=== PATIENT | female | born 1980 | race African-American/Black ===

== ENCOUNTER 2016-05-29 07:56 | Inpatient (IN) | payer MEDICAID, OTHER ==
[~2016-05-29] VITALS: Ht 162.6 cm; Wt 72.0 kg
[~2016-05-29 07:56] MED LIST: PENI500T PO; Z.0.NO CURRENT MEDS
[2016-05-29 07:58] VITALS: BP 117/72; PULSE 84; RESP 15; TEMP 98; O2SAT 99
--- NOTE | 2016-05-29 09:09 | PD ---
HPI Chief Complaint: Injury Time Seen by Provider: 09:09 Travel History International Travel<30 days: No Contact w/Intl Traveler<30days: No Traveled to known affect area: No History of Present Illness HPI 35-year-old female presents to the emergency department for evaluation of right- sided right calf pain. Patient states on Sunday, she was at the [facility] with her daughter. She states that she thought she could not as well. She started with right thigh pain soon after. However, she now also has right calf pain. The patient is concerned because she had a DVT when she was 16 years old. She does have an IVC filter. She states the DVT was in the left leg. She states that her left leg is chronically more swollen than her right, but her right leg equal to left leg now. Patient has been ambulatory. No fevers or chills. She has no other medical problems and takes no prescribed medications. She denies any chance of . Patient states that she took ibuprofen once for the pain. She denies any other complaints at this time. [facility] Past Medical History Asthma: Yes Diminished Hearing: No Deep Vein Thrombosis: Yes (LEFT LEG) Tetanus Vaccination: < 5 Years Influenza Vaccination: Yes ?: Not Past Surgical History Section: Yes Other Surgery: Yes (DEYVI FILTER IN 1997, BILAT BREAST AUGMENTATION) Social History Alcohol Use: Yes ([facility]) Tobacco Use: No Substance Use: No Allergies-Medications (Allergen,Severity, Reaction): Coded Allergies: No Known Allergies (Verified , 05/29/16) Reported Meds & Prescriptions Reported Meds & Active Scripts Active Review of Systems Except as stated in HPI: all other systems reviewed are Neg Physical Exam Narrative GENERAL: Well-nourished, well-developed female patient ambulatory. Afebrile., SKIN: Focused skin assessment warm/dry. No erythema or warmth noted over right lower extremity. HEAD: Normocephalic. Atraumatic. EYES: No scleral icterus. No injection or drainage. NECK: Supple, trachea midline. No JVD or lymphadenopathy. CARDIOVASCULAR: Regular rate and rhythm without murmurs, gallops, or rubs. Right pedal pulse 2+. RESPIRATORY: Breath sounds equal bilaterally. No accessory muscle use. Lungs sounds are clear to auscultation. GASTROINTESTINAL: Abdomen soft, non-tender, nondistended. MUSCULOSKELETAL: No cyanosis, or edema. Patient has tenderness over specific area on the right medial thigh. She also tenderness diffusely over the right calf. Positive Homans sign. BACK: Nontender without obvious deformity. No CVA tenderness. Data Data Last Documented VS Vital Signs Date Time Temp Pulse Resp B/P Pulse Ox O2 Delivery O2 Flow Rate FiO2 05/29/16 08:22 Room Air 05/29/16 07:58 98.0 84 15 117/72 99 Orders Us Leg Venous Doppler (05/29/16 ) Ibuprofen (Motrin) (05/29/16 09:15) Methocarbamol (Robaxin) (05/29/16 09:15) Iv Access Insert/Monitor (05/29/16 11:40) Complete Blood Count With Diff (05/29/16 11:40) Comprehensive Metabolic Panel (05/29/16 11:40) Prothrombin Time / Inr (Pt) (05/29/16 11:40) Act Partial Throm Time (Ptt) (05/29/16 11:40) Venogram, Leg (05/29/16 ) Ed Urine Pregnancytest Poc (05/29/16 11:40) Admit To Inpatient (05/29/16 ) Vital Signs (Adult) Q4H (05/29/16 12:00) Activity Oob With Assistance (05/29/16 12:00) Diet Npo (05/29/16 Lunch) Sodium Chloride 0.9% Flush (Ns Flush) (05/29/16 12:00) Sodium Chloride 0.9% Flush (Ns Flush) (05/29/16 21:00) Acetaminophen (Tylenol) (05/29/16 12:00) Ondansetron Inj (Zofran Inj) (05/29/16 12:00) Bisacodyl Supp (Dulcolax Supp) (05/29/16 12:00) Magnesium Hydroxide Liq (Milk Of Magnesi (05/29/16 12:00) Basic Metabolic Panel (Bmp) (05/30/16 06:00) Chest, Single Ap (05/29/16 12:00) Electrocardiogram (05/29/16 12:00) Pt Request For Service (05/29/16 12:00) Naloxone Inj (Narcan Inj) (05/29/16 12:00) Inpatient Certification (05/29/16 ) Beta Hcg (Quant/Titer) (05/29/16 12:00) Acetamin-Hydrocod 325-5 Mg (Bauxite 5-325 (05/29/16 12:15) Admit Order (Ed Use Only) (05/29/16 12:09) Us Guided Vascular Access (05/29/16 ) Labs Laboratory Tests Test 05/29/16 11:55 White Blood Count 5.7 TH/MM3 Red Blood Count 3.74 MIL/MM3 Hemoglobin 11.3 GM/DL Hematocrit 34.4 % Mean Corpuscular Volume 92.2 FL Mean Corpuscular Hemoglobin 30.2 PG Mean Corpuscular Hemoglobin 32.8 % Concent Red Cell Distribution Width 13.0 % Platelet Count 184 TH/MM3 Mean Platelet Volume 8.5 FL Neutrophils (%) (Auto) 55.7 % Lymphocytes (%) (Auto) 30.9 % Monocytes (%) (Auto) 11.0 % Eosinophils (%) (Auto) 1.7 % Basophils (%) (Auto) 0.7 % Neutrophils # (Auto) 3.2 TH/MM3 Lymphocytes # (Auto) 1.8 TH/MM3 Monocytes # (Auto) 0.6 TH/MM3 Eosinophils # (Auto) 0.1 TH/MM3 Basophils # (Auto) 0.0 TH/MM3 CBC Comment DIFF FINAL Differential Comment Prothrombin Time 11.2 SEC Prothromb Time International 1.0 RATIO Ratio Activated Partial 25.0 SEC Thromboplast Time Sodium Level 140 MEQ/L Potassium Level 4.2 MEQ/L Chloride Level 104 MEQ/L Carbon Dioxide Level 27.4 MEQ/L Anion Gap 9 MEQ/L Blood Urea Nitrogen 12 MG/DL Creatinine 0.76 MG/DL Estimat Glomerular Filtration 104 ML/MIN Rate Random Glucose 86 MG/DL Calcium Level 8.3 MG/DL Total Bilirubin 1.0 MG/DL Aspartate Amino Transf 16 U/L (AST/SGOT) Alanine Aminotransferase 17 U/L (ALT/SGPT) Alkaline Phosphatase 51 U/L Total Protein 6.8 GM/DL Albumin 3.6 GM/DL Human Chorionic Gonadotropin, LESS THAN 1 Quant MIU/ML MDM Medical Decision Making Medical Screen Exam Complete: Yes Emergency Medical Condition: Yes Medical Record Reviewed: Yes Interpretation(s) Last Impressions Lower Extremity Ultrasound 05/29/16 0000 Signed Impressions: Service Date/Time: Marlo, May 29, 2016 09:20 - CONCLUSION: Extensive edema thrombosis on the right as described above. Venous outflow was compromised through the external iliac vein. Kyree Stout MD FACR Differential Diagnosis Muscle strain versus muscle spasm versus DVT Narrative Course 35-year-old female presents to the emergency department for evaluation of right leg pain after practicing at the [employer] on Sunday. She reports a specific area on the right side that hurts, also states that her right calf is painful and more swollen than normal. She does have history of DVT when she was 16 years old and has an IVC filter. Venous Doppler ultrasound of the right lower extremity is ordered and pending. Patient is given ibuprofen and Robaxin the emergency department. Venous Doppler ultrasound of the right lower extremity shows Extensive edema thrombosis on the right as described above. Venous outflow was compromised through the external iliac vein. I discussed the exam and imaging findings with my attending physician, Dr. Talbot. She recommends I contact the patient's primary care physician. [phone] - Adriana Garcia, patient's primary care physician is paged. I was unable to contact Dr. Schmitt by phone. However, apparently she called back the emergency department and was placed on hold for a long period of time. I was unaware that she was on hold. She did write a note in the chart suggesting either consulting interventional radiology or Dr. Faustin to see if they clock and be open since this is of recent onset. I consult at Dr. Darden, interventional radiologist at [phone], and spoke to him about the patient's case. He does believe the patient is a candidate for lysis of the clot. He like a ordered for venogram, labs to be placed as a consult interventional radiology. I discussed this with the patient she would like to go ahead as of this point. CBC, CMP, PTT, PTT/INR, urine test are ordered and pending. Order for venogram and consulting interventional radiology were ordered and pending. Dr. Yanez accepted admission. Diagnosis Primary Impression: DVT (deep venous thrombosis) Qualified Code: I82.401 - Acute deep vein thrombosis (DVT) of right lower extremity, unspecified vein Admitting Information Admitting Physician Requests: Admit Scripts Hydrocodone-Acetaminophen 5-325 mg Tab1 Tab PO Q6H PRN (pain) #7 TAB Ref 0 Prov:Jonathan Yanez DO 05/31/16 Rivaroxaban (Xarelto)15 Mg Tab15 Mg PO BID #60 TAB Ref 0 Prov:Jonathan Yanez DO 05/31/16 Claudia Dockery May 29, 2016 09:09
[2016-05-29] MEDS ORDERED: METHOCARBAMOL 500 MG TAB PO ONE (09:15)
[2016-05-29] MEDS ORDERED: IBUPROFEN 600 MG TAB PO ONE (09:15)
--- NOTE | 2016-05-29 10:08 | RADRPT ---
EXAM DATE/TIME: 05/29/2016 09:20 [facility] COMPARISON: No previous studies available for comparison. INDICATIONS : Pain in right lower extremity. MEDICAL HISTORY : Deep venous thrombosis. Asthma. SURGICAL HISTORY : section. Gamerco filter. Bilateral breast augmentation. ENCOUNTER: Initial ACUITY: 4 - 6 days PAIN SCORE: 5/10 LOCATION: Right leg. TECHNIQUE: Venous ultrasound of the leg was performed from the inguinal ligament to the proximal calf. Real-anisha e, color Doppler and spectral tracing, compression and augmentation techniques were used. FINDINGS: There is extensive edema thrombosis right lower extremity from posterior tibial vein to the iliac vei n. Minimal venous collaterals are noted. CONCLUSION: Extensive edema thrombosis on the right as described above. Venous outflow was compromised through t he external iliac vein. Kyree Stout MD FACR on May 29, 2016 at 10:05 Board Certified Radiologist. This report was verified electronically.
--- NOTE | 2016-05-29 10:56 | HHI.PR ---
Addendum to Inpatient Note Addendum Reason: Additional Documentation Additional Information ED hung up before I could get out of a patient room. I have spent 10 minutes on hold and cannot get connected back to anyone in the ED. I see that she has a DVT. I would suggest either consulting interventional radiology or Dr. Faustin to see if we can open the clot since it is of recent onset. Please call if further info is needed. Adriana Griffin MD May 29, 2016 10:56
[2016-05-29] MEDS ORDERED: BISACODYL 10 MG SUPP PR PRN (12:00)
[2016-05-29] MEDS ORDERED: NALOXONE HCL 0.4 MG/ML AMP IV PRN (12:00)
[2016-05-29] MEDS ORDERED: MAGNESIUM HYDROXIDE SUSP 30 ML CUP PO PRN (12:00)
[2016-05-29] MEDS ORDERED: ONDANSETRON HCL 4 MG/2 ML VIAL IVP PRN (12:00)
[2016-05-29] MEDS ORDERED: SODIUM CHLORIDE 0.9% FLUSH 10 ML FLUSH IV FLUSH PRN (12:00)
[2016-05-29] MEDS ORDERED: ACETAMINOPHEN 325 MG TAB PO PRN (12:00)
[2016-05-29 12:13] LABS: AUTOMATED NEUTROPHIL # 3.2 TH/MM3 (1.8-7.7); BASOPHIL % 0.7 % (0.0-2.0); EOSINOPHIL # 0.1 TH/MM3 (0-0.4); EOSINOPHIL % 1.7 % (0.0-4.0); HEMATOCRIT 34.4 % (35.0-46.0); HEMO FLAGS DIFF FINAL; LYMPH % 30.9 % (9.0-44.0); LYMPHOCYTE # 1.8 TH/MM3 (1.0-4.8); MEAN CELL VOLUME 92.2 FL (80.0-100.0); MEAN CORPUSCULAR HEMOGLOBIN 30.2 PG (27.0-34.0); MEAN CORPUSCULAR HGB CONC 32.8 % (32.0-36.0); NEUT % 55.7 % (16.0-70.0); PLATELET COUNT 184 TH/MM3 (150-450); RED BLOOD COUNT 3.74 MIL/MM3 (4.00-5.30); WHITE BLOOD COUNT 5.7 TH/MM3 (4.0-11.0)
[2016-05-29 12:19] VITALS: BP 114/68; PULSE 70; RESP 16; O2SAT 100
[2016-05-29 12:20] LABS: PROTHROMBIN TIME - PATIENT 11.2 SEC (9.8-11.6)
[2016-05-29 12:26] LABS: ANION GAP 9 MEQ/L (5-15); AST (GOT) 16 U/L (15-37); BICARBONATE 27.4 MEQ/L (21.0-32.0); BLOOD UREA NITROGEN 12 MG/DL (7-18); CHLORIDE 104 MEQ/L (98-107); GLOMERULAR FILTRATION RATE 104 ML/MIN (>89); POTASSIUM 4.2 MEQ/L (3.5-5.1); SODIUM (NA) 140 MEQ/L (136-145)
[2016-05-29 12:29] LABS: ALKALINE PHOSPHATASE 51 U/L (45-117); ALT (GPT) 17 U/L (10-53)
[2016-05-29 12:34] LABS: BETA HCG QUANT LESS THAN 1 MIU/ML (0-5)
--- NOTE | 2016-05-29 12:44 | HHI.HP ---
HPI Service [facility] Hospitalists Primary Care Physician Adriana Garcia MD Admission Diagnosis right leg DVT Chief Complaint: RLE pain and swelling. Travel History International Travel<30 Days: No Contact w/Intl Traveler <30 Da: No Traveled to Known Affected Are: No History of Present Illness Mrs. Goodwin is a pleasant 35 y/o AAF with previous history of LLE DVT in 1997 and had an IVC filter placed at that time. She reports that she had a hematology workup at that time which she states was negative in [place] when the previous DVT occurred. She states that otherwise she is a healthy active female. Pt flew in [place] 2 weeks ago. She presented to the ED at [facility] on 05/29 with complaints of right-sided right calf pain and swelling in the RLE. Patient reports that last week, on Sunday, she was at the [employer] with her daughter and she initially noted pain in the right thigh after she had been hitting balls there but thought that she had pulled a muscle. However, she now also has right calf pain. She states that her left leg is chronically more swollen than her right, but her when her right leg became equal to left leg she became concerned because of her history of a DVT when she was 16 years old. No fevers or chills. She has no other medical problems and takes no prescribed medications. She denies any chance of . She is not on any OCP. Patient states that she took ibuprofen once for the pain. She denies any other complaints at this time. Review of Systems Constitutional: DENIES: Fever, Chills Ears, nose, mouth, throat: DENIES: Vertigo Respiratory: DENIES: Cough, Shortness of breath Cardiovascular: COMPLAINS OF: Lower Extremity Edema, DENIES: Chest pain, Palpitations, Dyspnea on Exertion Gastrointestinal: DENIES: Abdominal pain, Constipation, Diarrhea, Nausea, Vomiting Integumentary: DENIES: Rash Neurologic: DENIES: Headache, Seizures, Poor Balance Past Family Social History Past Medical History Hx of DVT in LLE Asthma Past Surgical History IVC filter placement in 1997 Breast Augmentation in 2010 Cesarian section Tubal ligation Reported Medications No Current Meds Allergies: Coded Allergies: No Known Allergies (Verified , 05/29/16) Family History Mother with hx of HTN Social History Denies any tobacco or illicit drug use Rare alcohol use Pt works as a registered nurse Physical Exam Vital Signs Vital Signs Date Time Temp Pulse Resp B/P Pulse Ox O2 Delivery O2 Flow Rate FiO2 05/29/16 12:19 70 16 114/68 100 Room Air 05/29/16 08:22 Room Air 05/29/16 07:58 98.0 84 15 117/72 99 Physical Exam GENERAL: This is a well-nourished, well-developed patient, in no apparent distress. HEENT: Atraumatic. Normocephalic. No temporal or scalp tenderness. No scleral icterus. Airway patent. NECK: Trachea midline, supple, nontender. CARDIO: Regular. RESP: CTA bilaterally. No wheezes, rales, or rhonchi. ABD: +BS, soft, non-tender, nondistended. EXT: RLE swelling and diffuse tenderness over right calf and right medial thigh. NEURO: Awake and alert. Motor and sensory grossly within normal limits. Normal speech. Laboratory Laboratory Tests Test 05/29/16 11:55 White Blood Count 5.7 Red Blood Count 3.74 Hemoglobin 11.3 Hematocrit 34.4 Mean Corpuscular Volume 92.2 Mean Corpuscular Hemoglobin 30.2 Mean Corpuscular Hemoglobin 32.8 Concent Red Cell Distribution Width 13.0 Platelet Count 184 Mean Platelet Volume 8.5 Neutrophils (%) (Auto) 55.7 Lymphocytes (%) (Auto) 30.9 Monocytes (%) (Auto) 11.0 Eosinophils (%) (Auto) 1.7 Basophils (%) (Auto) 0.7 Neutrophils # (Auto) 3.2 Lymphocytes # (Auto) 1.8 Monocytes # (Auto) 0.6 Eosinophils # (Auto) 0.1 Basophils # (Auto) 0.0 CBC Comment DIFF FINAL Differential Comment Prothrombin Time 11.2 Prothromb Time International 1.0 Ratio Activated Partial 25.0 Thromboplast Time Sodium Level 140 Potassium Level 4.2 Chloride Level 104 Carbon Dioxide Level 27.4 Anion Gap 9 Blood Urea Nitrogen 12 Creatinine 0.76 Estimat Glomerular Filtration 104 Rate Random Glucose 86 Calcium Level 8.3 Total Bilirubin 1.0 Aspartate Amino Transf 16 (AST/SGOT) Alanine Aminotransferase 17 (ALT/SGPT) Alkaline Phosphatase 51 Total Protein 6.8 Albumin 3.6 Result Diagram: 05/29/16 1155 05/29/16 1155 Imaging Last Impressions Lower Extremity Ultrasound 05/29/16 0000 Signed Impressions: Service Date/Time: Sunday, May 29, 2016 09:20 - CONCLUSION: Extensive edema thrombosis on the right as described above. Venous outflow was compromised through the external iliac vein. Kyree Stout MD FACR Septic Shock Reassessment Heart: Regular rate and rhythm Lungs: Clear Skin: Warm Assessment and Plan Problem List: (1) DVT (deep venous thrombosis) Status: Acute Plan: - Pt admitted with RLE thigh and calf pain and swelling which began around 5 days ago. - Pt had recently flown on a plane to [place] about 2 weeks ago. No reported injury of trauma to the RLE. - She is not on any OCP or hormone supplements. - Pt does not take any medications chronically. - LE US (05/29) --> Extensive edema thrombosis on the right. Venous outflow was compromised through the external iliac vein. - Interventional Radiology has been consulted for evaluation to determine if the clot can be dissolved. - Pain control PRN Assessment and Plan Patient examined. Assessment and plan formulated with Za Humphreys PA-C. I agree with the above. Physician Certification 2 Midnight Certification Type: Admission for Inpatient Services Order for Inpatient Services The services are ordered in accordance with Medicare regulations or non- Medicare payer requirements, as applicable. In the case of services not specified as inpatient-only, they are appropriately provided as inpatient services in accordance with the 2-midnight benchmark. Estimated LOS (days): 2 2 days is the estimated time the patient will need to remain in the hospital, assuming treatment plan goals are met and no additional complications. Post-Hospital Plan: Home Problem Qualifiers (1) DVT (deep venous thrombosis): Qualified Code: I82.401 - Acute deep vein thrombosis (DVT) of right lower extremity, unspecified vein Za Humphreys May 29, 2016 12:44 Jonathan Yanez DO Jun 01, 2016 23:28
--- NOTE | 2016-05-29 12:54 | RADRPT ---
EXAM DATE/TIME: 05/29/2016 12:07 [facility] COMPARISON: CHEST SINGLE AP, January 14, 2011, 7:41. INDICATIONS : Patient states shortness of breath. MEDICAL HISTORY : None. SURGICAL HISTORY : None. ENCOUNTER: Initial ACUITY: 1 day PAIN SCORE: 0/10 LOCATION: Bilateral chest FINDINGS: A single view of the chest demonstrates the lungs to be symmetrically aerated without evidence of mas s, infiltrate or effusion. The cardiomediastinal contours are unremarkable. Osseous structures are intact. CONCLUSION: No acute disease. Kyree Stout MD FACR on May 29, 2016 at 12:52 Board Certified Radiologist. This report was verified electronically.
[2016-05-29] MEDS ORDERED: MIDAZOLAM HCL 5 MG/5 ML VIAL ONE (14:48)
[2016-05-29] MEDS ORDERED: fentaNYL CITRATE 250 MCG/5 ML AMP ONE (14:48)
[2016-05-29] MEDS ORDERED: IOHEXOL 350 MG/ML 100 ML BTL (for RAD DIAG) IV ONE (16:21)
--- NOTE | 2016-05-29 16:51 | PD.RAD ---
Post Procedure Progress Note Pre Procedure Diagnosis: (1) DVT (deep venous thrombosis) Post Procedure Diagnosis: (1) DVT (deep venous thrombosis) Procedure Date: May 29, 2016 Supervising Radiologist: Gilberto Canas Proceduralist/Assist: Angleita Dorman, RT(R)(CV), Katie Carver RT(R)() Anesthesia: Analgesia, Conscious Sedation Plan of Activity Patient to Unit: ROPU Patient Condition: Good See PACS Report for procedural detail/treatment Vascular-Venous Procedure Procedure 1 Procedure Site: Right Leg Procedure(s): Thrombolysis, Venogram Access Access Site(s): Right Popliteal Vein Sheath(s) Remaining: Right Popliteal Vein Findings: 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 TPA initiated at 2mg/hr. Gilberto Canas MD May 29, 2016 16:51
--- NOTE | 2016-05-29 17:03 | RADRPT ---
EXAM DATE/TIME: 05/29/2016 14:50 [facility] COMPARISON: No previous studies available for comparison. INDICATIONS : Patient with history of DVT.Has filter.right leg pain. MEDICAL HISTORY : 1.DVT 2.asthma SURGICAL HISTORY : 1. IVC filter 2. C section ENCOUNTER: Initial ACUITY: 4 - 6 days PAIN SCORE: 0/10 FLUORO TIME: 5.9 minutes IMAGE SERIES: 9 ACCESS SITE: Right Popliteal vein CONTRAST: 50 cc Omnipaque (iohexol) 350 MEDICATION(S): 1.) 2 mg midazolam (Versed) IV 2.) 100 mcg fentanyl (Sublimaze) IV DEVICE(S): 1.) Right popliteal vein EV3 infusion catheter 50 cm 2.) Right popliteal vein 6 fr 10 cm sheath PROCEDURE : 1. Ultrasound-guided venipuncture. 2. Venogram. The risks, benefits and alternatives to the procedure were explained and verbal and written consent w as obtained. The site was prepped in sterile fashion. Full sterile technique was used, including ca p, mask, sterile gloves and gown and a large sterile sheet. Hand hygiene and 2% chlorhexidine and/or betadine/alcohol prep was utilized per protocol for cutaneous antisepsis. The skin and subcutaneous tissues were infiltrated with local anesthetic solution. With ultrasound guidance the selected vein was punctured and positive contrast was injected to demons trate the venous anatomy of the affected extremity. Extensive deep venous thrombosis throughout the r ight lower extremity. Catheter and wire were manipulated easily into the central superficial femoral vein. Age indeterminate thrombus is seen at the junction of the common femoral and superficial femora l veins. Patient has a Birdsnest-type filter and there does appear to be some chronic fibrosis in the region of the filter with well formed collaterals reconstituting the normal IVC above the level of t he Birdsnest. A 50 cm infusion catheter was advanced over the wire and TPA initiated at 2 mg an hour. CONCLUSION: 1. Extensive DVT in the right lower extremity. I believe the peripheral thrombus is acute with possib ly chronic fibrosis/scarring in the region of the Birdsnest-type filter in the peripheral IVC. 2. TPA thrombolysis had been initiated at 2 mg an hour. Gilberto Canas MD on May 29, 2016 at 16:56 Board Certified Radiologist. This report was verified electronically.
[2016-05-29 17:15] VITALS: BP 124/74; PULSE 66; RESP 27; TEMP 98.2; O2SAT 100
[2016-05-29 18:00] VITALS: PULSE 66
[2016-05-29] MEDS ORDERED: HEPARIN 25,000 UNITS/250 ML D5W IV SCH (18:15)
[2016-05-29] MEDS ORDERED: Intra-Venous SODIUM CHLORIDE 0.9% IV LINE 1000 ML IV SCH (18:15)
[2016-05-29] MEDS ORDERED: MORPHINE SULFATE 4 MG/ML INJ IV PRN (18:15)
[2016-05-29] MEDS ORDERED: Intra-Venous HEPARIN 1,000 UNITS/500 ML NS (PRN) IV ×2 (18:15)
[2016-05-29] MEDS: Intra-Venous ALTEPLASE 10 MG/500 ML NS IV SCH ×4 (18:21→20:58)
[2016-05-29] MEDS: ACETAMINOPHEN/HYDROcodone 325 MG/5 MG TAB PO PRN (18:44)
[2016-05-29 20:00] VITALS: BP 112/76; PULSE 69; PULSE 70; RESP 20; TEMP 98.6; O2SAT 100
[2016-05-29] MEDS: SODIUM CHLORIDE 0.9% FLUSH 10 ML FLUSH IV FLUSH SCH (20:59)
[2016-05-29] MEDS: MORPHINE SULFATE 4 MG/ML INJ IV PRN (21:10)
[2016-05-29] MEDS: ONDANSETRON HCL 4 MG/2 ML VIAL IV PRN (21:20)
[2016-05-29] MEDS ORDERED: CHLORHEXIDINE GLUCONATE 2 % 1 PACK (2 CLOTHS)(extra cloths) TOPICAL PRN (21:45)
[2016-05-29 22:00] VITALS: PULSE 64
[2016-05-29 22:04] LABS: AUTOMATED NEUTROPHIL # 2.8 TH/MM3 (1.8-7.7); BASOPHIL % 0.7 % (0.0-2.0); EOSINOPHIL # 0.1 TH/MM3 (0-0.4); EOSINOPHIL % 1.4 % (0.0-4.0); HEMO FLAGS DIFF FINAL; LYMPH % 33.6 % (9.0-44.0); LYMPHOCYTE # 1.8 TH/MM3 (1.0-4.8); MEAN CELL VOLUME 91.9 FL (80.0-100.0); MEAN CORPUSCULAR HEMOGLOBIN 30.8 PG (27.0-34.0); MEAN CORPUSCULAR HGB CONC 33.5 % (32.0-36.0); MONO % 11.7 % (0.0-8.0); NEUT % 52.6 % (16.0-70.0); PLATELET COUNT 148 TH/MM3 (150-450); RED BLOOD COUNT 3.26 MIL/MM3 (4.00-5.30); RED CELL DISTRIBUTION WIDTH 13.1 % (11.6-17.2); WHITE BLOOD COUNT 5.3 TH/MM3 (4.0-11.0)
[2016-05-30] VITALS (11 sets, daily range): BP systolic 101–117; BP diastolic 61–76; PULSE 64–88; RESP 15–23; TEMP 97.9–99.5; O2SAT 99–100
[2016-05-30] MEDS: CHLORHEXIDINE GLUCONATE 2 % 1 PACK (2 CLOTHS)(taper/protocol) TOPICAL SCH (02:34)
[2016-05-30 04:11] LABS: AUTOMATED NEUTROPHIL # 3.1 TH/MM3 (1.8-7.7); BASOPHIL % 0.4 % (0.0-2.0); EOSINOPHIL # 0.1 TH/MM3 (0-0.4); EOSINOPHIL % 1.2 % (0.0-4.0); HEMATOCRIT 32.3 % (35.0-46.0); HEMO FLAGS DIFF FINAL; LYMPH % 25.5 % (9.0-44.0); LYMPHOCYTE # 1.3 TH/MM3 (1.0-4.8); MEAN CELL VOLUME 92.1 FL (80.0-100.0); MEAN CORPUSCULAR HEMOGLOBIN 31.2 PG (27.0-34.0); MEAN CORPUSCULAR HGB CONC 33.9 % (32.0-36.0); MONO % 11.3 % (0.0-8.0); NEUT % 61.6 % (16.0-70.0); PLATELET COUNT 145 TH/MM3 (150-450); RED BLOOD COUNT 3.51 MIL/MM3 (4.00-5.30); RED CELL DISTRIBUTION WIDTH 13.1 % (11.6-17.2); WHITE BLOOD COUNT 5.1 TH/MM3 (4.0-11.0)
[2016-05-30] MEDS: ONDANSETRON HCL 4 MG/2 ML VIAL IV PRN ×3 (04:13→22:14)
[2016-05-30] MEDS: MORPHINE SULFATE 4 MG/ML INJ IV PRN (04:16)
[2016-05-30] MEDS: Intra-Venous ALTEPLASE 10 MG/500 ML NS IV SCH ×2 (04:29)
[2016-05-30 04:41] LABS: APTT (PATIENT) 114.7 SEC (24.3-30.1)
[2016-05-30 04:43] LABS: BICARBONATE 24.9 MEQ/L (21.0-32.0)
[2016-05-30 05:14] LABS: CALCIUM-PROTEIN CORRECTED 8.1 MG/DL (8.5-10.1)
[2016-05-30] MEDS: SODIUM CHLORIDE 0.9% FLUSH 10 ML FLUSH IV FLUSH SCH ×2 (07:58→22:16)
[2016-05-30] MEDS ORDERED: fentaNYL CITRATE 250 MCG/5 ML AMP ONE (08:58)
[2016-05-30] MEDS ORDERED: MIDAZOLAM HCL 5 MG/5 ML VIAL ONE (08:58)
[2016-05-30] MEDS ORDERED: IOHEXOL 350 MG/ML 100 ML BTL (for RAD DIAG) IV ONE (10:00)
--- NOTE | 2016-05-30 10:55 | PD.RAD ---
Post Procedure Progress Note Pre Procedure Diagnosis: (1) DVT (deep venous thrombosis) Post Procedure Diagnosis: (1) DVT (deep venous thrombosis) Procedure Date: May 30, 2016 Supervising Radiologist: Gilberto Canas Proceduralist/Assist: Tiana Sanders, RT(R), Katie Carver RT(R)() Anesthesia: Local, Analgesia, Conscious Sedation Plan of Activity Patient to Unit: Critical Care Patient Condition: Good See PACS Report for procedural detail/treatment Vascular-Venous Procedure Procedure 1 Procedure Site: Right Leg Procedure(s): Angioplasty, Embolectomy, Thrombolysis, Venogram Access Access Site(s): Right Popliteal Vein Closure Site(s): Right manual pressure Findings: Moderate response to overnight TPA with partial clearing of thrombus in SFV. Chronic appearing thrombus/stenosis in right iliac system extending into IVC. Angiojet thrombectomy with almost complete clearing of SFV and CFV. 4 and 10 mm CHEF DE CUISINE of entire distal IVC, right common and external iliac, sfv and popliteal to re-establish contiguous outflow. Plan Will restart therapeutic heparin at 1300 today. Patient should be bridged to oral anticoagulant prior to d/c. Recommend maintenance anticoagulation for life secondary to IVC fibrosis and stenosis/filter. Gilberto Canas MD May 30, 2016 10:55
[2016-05-30] MEDS ORDERED: HEPARIN-D5W INJ 250 ML IV SCH (11:00)
[2016-05-30] MEDS ORDERED: SODIUM CHLOR 0.9% 1000 ML INJ 1,000 ML IV SCH (12:00)
--- NOTE | 2016-05-30 14:14 | RADRPT ---
EXAM DATE/TIME: 05/30/2016 09:26 [facility] COMPARISON: No previous studies available for comparison. INDICATIONS : Patient in need of follow up to therapeutic thrombolysis. MEDICAL HISTORY : DVT asthma SURGICAL HISTORY : IVC filter 1997 C section Tubal ligation Breast augmentation 2010 ENCOUNTER: Subsequent ACUITY: 4-6 days PAIN SCORE: 3/10 LOCATION: Right thigh FLUORO TIME: 10.9 minutes IMAGE SERIES: 15 SEDATION TIME: 50 minutes CONTRAST: 1.) 85 cc Omnipaque (iohexol) 350 MEDICATION(S): 1.) 4 mg midazolam (Versed) IV 2.) 200 mcg fentanyl (Sublimaze) IV DEVICE(S): 1.) Right common iliac vein 10.0mm X 60mm LASER BEAM CUTTER balloon 2.) Right common femoral vein 10.0mm X 60mm LASER BEAM CUTTER balloon 3.) Right superficial femoral vein 10.0mm X 60mm LASER BEAM CUTTER balloon 4.) Right popliteal vein 10.0mm X 60mm LASER BEAM CUTTER balloon 5.) inferior Vena Cava LASER BEAM CUTTER balloon 10.0mm X 60mm 6.) inferior Vena Cava LASER BEAM CUTTER balloon 4.0mm X 40mm 7.) Right iliac, femoral, popliteal Mechanical thrombectomy PROCEDURE: F/U THRU EXISTING CATH, RIGHT 1. Followup thrombolysis 2. Mechanical thrombectomy, AngioJet Possis, right common and external iliac, entire SFV and above-kn ee popliteal vein. 3. 4 mm balloon angioplasty, right common iliac vein and IVC. 4. 10 mm balloon angioplasty, peripheral IVC, entire right iliac system, SFV and above-knee poplitea l vein. 5. Conscious sedation with continuous EKG and oximetry monitoring. Following TPA infusion the patient returned to the angiography suite for evaluation. Contrast injection through the carrier sheath showed marked improvement in the clot burden was comple te resolution in the above-knee popliteal and portions of the peripheral SFV. However, there was stil l significant irregularity in the central aspect the, common femoral vein and throughout the right il iac system extending into the IVC. Therefore, a 6 mm AngioJet was advanced through the sheath. This w as used to extract a good portion of the remaining clot burden from the deep venous system extending from the access site in the popliteal vein centrally into the central, common iliac vein. Contrast i njections showed marked improvement in the clot burden was still some fibrosis/scarring in the centra l portion of the SFV, common femoral vein and right iliac system. Ultra high-grade stenosis/occlusion at the junction of the right common iliac vein and IVC was traversed with the Glidewire. The high-gr anne stenosis in this region with balloon angioplasty to 4 mm to facilitate placement of a 10 mm angio plasty balloon. 10 mm balloon angioplasty was then performed from the bird's nest filter/IVC peripher ally through the entire iliac system, entire SFV and the above-knee popliteal. Contrast injection lindsay wed almost complete resolution of the previous clot burden is some minimal irregularity in the centra l SFV by contiguous outflow to and through the IVC. Conscious sedation was performed with the prescribed dosages and duration as above in the presence of an independent trained radiology nurse to assist in the monitoring of the patient. EKG and oximetry remained stable throughout the procedure. CONCLUSION: 1. Samaritan of contiguous outflow from the right deep venous system through the IVC/bird's nest fi lter. Clot removal was facilitated through chemical and mechanical thrombolysis with subsequent ballo on angioplasty. 2. Would recommend the patient be bridged to oral anticoagulation which she should probably maintain for life Gilberto Canas MD on May 30, 2016 at 14:00 Board Certified Radiologist. This report was verified electronically.
--- NOTE | 2016-05-30 14:43 | HHI.PR ---
Subjective Remarks No new complaints. Objective Vitals Vital Signs Date Time Temp Pulse Resp B/P Pulse Ox O2 Delivery O2 Flow Rate FiO2 05/30/16 14:00 66 05/30/16 12:00 97.9 68 22 113/76 100 05/30/16 12:00 68 05/30/16 11:30 14 05/30/16 08:00 98.4 66 15 110/69 100 05/30/16 08:00 66 05/30/16 07:00 Room Air 05/30/16 06:00 74 05/30/16 04:00 64 05/30/16 04:00 98.4 64 18 117/62 99 05/30/16 02:00 64 05/30/16 00:00 68 05/30/16 00:00 98.3 68 15 102/70 99 05/29/16 22:00 64 05/29/16 20:00 100 Room Air 05/29/16 20:00 98.6 70 20 112/76 100 05/29/16 20:00 69 05/29/16 18:00 66 05/29/16 17:15 100 Room Air 05/29/16 17:15 98.2 66 27 124/74 100 05/29/16 17:15 66 05/29/16 05/29/16 05/30/16 15:00 23:00 07:00 Intake Total 964 ml 603 ml Output Total 175 ml 565 ml Balance 789 ml 38 ml Intake Oral 120 ml IV Total 844 ml 603 ml Output Urine Total 175 ml 565 ml # Bowel Movements 0 0 Result Diagram: 05/30/16 0350 05/30/16 0350 Imaging Last Impressions Lower Extremity Ultrasound 05/29/16 0000 Signed Impressions: Service Date/Time: Sunday, May 29, 2016 09:20 - CONCLUSION: Extensive edema thrombosis on the right as described above. Venous outflow was compromised through the external iliac vein. Kyree Stout MD FACR Objective Remarks GENERAL: This is a well-nourished, well-developed patient, in no apparent distress. CARDIOVASCULAR: Regular rate and rhythm without murmurs, gallops, or rubs. RESPIRATORY: Clear to auscultation. Breath sounds equal bilaterally. No wheezes , rales, or rhonchi. GASTROINTESTINAL: Abdomen soft, non-tender, nondistended. Normal active bowel sounds MUSCULOSKELETAL: Extremities without clubbing, cyanosis, or edema. NEURO: Alert & Oriented x4 to person, place, time, situation. Moves all ext x4 A/P Problem List: (1) DVT (deep venous thrombosis) Status: Acute Plan: - Pt admitted with RLE thigh and calf pain and swelling which began around 5 days ago. - Pt had recently flown on a plane to [place] about 2 weeks ago. No reported injury of trauma to the RLE. - She is not on any OCP or hormone supplements. - Pt does not take any medications chronically. - LE US (05/29) --> Extensive edema thrombosis on the right. Venous outflow was compromised through the external iliac vein. - Pt received tPA overnight with partial clearing of thrombus in SFV - anjojet thrombectomy with almost complete clearing of SFV and CFV - on heparin - will convert to xarelto, or eliquis/xarelto - await Hematology Consult - Pain control PRN Problem Qualifiers (1) DVT (deep venous thrombosis): Qualified Code: I82.401 - Acute deep vein thrombosis (DVT) of right lower extremity, unspecified vein Jonathan Yanez DO May 30, 2016 14:43
[2016-05-30 15:05] LABS: HEMATOCRIT 32.7 % (35.0-46.0); MEAN CELL VOLUME 92.5 FL (80.0-100.0); MEAN CORPUSCULAR HEMOGLOBIN 30.1 PG (27.0-34.0); MEAN CORPUSCULAR HGB CONC 32.6 % (32.0-36.0); PLATELET COUNT 139 TH/MM3 (150-450); RED BLOOD COUNT 3.54 MIL/MM3 (4.00-5.30); RED CELL DISTRIBUTION WIDTH 12.9 % (11.6-17.2); REVIEW FLAG FINAL; WHITE BLOOD COUNT 5.6 TH/MM3 (4.0-11.0)
[2016-05-30 15:21] LABS: APTT (PATIENT) 28.4 SEC (24.3-30.1); INTERNATIONAL NORMALIZED RATIO 1.2 RATIO; PROTHROMBIN TIME - PATIENT 12.9 SEC (9.8-11.6)
[2016-05-30 20:05] LABS: APTT (PATIENT) 31.6 SEC (24.3-30.1)
--- NOTE | 2016-05-30 20:51 | MB ---
cc: FABIOLA DUFF DATE OF CONSULTATION 05/30/2016 DATE OF : 1980 REASON FOR CONSULTATION Patient with right lower extremity DVT. CHIEF COMPLAINT Right leg pain. HISTORY OF PRESENT ILLNESS Ms. Goodwin is a 35-year-old female who presented to the [facility] with right lower extremity pain. She has a past medical history of left lower extremity DVT in 1997. She was in [facility] at that time. She was and developed left lower extremity edema. At that time, an IVC filter was placed and the patient was placed on Coumadin for six months. She has not had any recurrent DVT since then. In the emergency department, a Doppler ultrasound of the right lower extremity was performed which showed an extensive DVT which was extending from the posterior tibial vein to the iliac vein and there was minimal venous collaterals. She was given TPA with partial clearing of the thrombus in the SFV, then AngioJet thrombectomy was performed which completely cleared the SFV and CFV. The patient is now on heparin. The patient is overall a very healthy individual. She is the mother of four children. She is quite active. Her only other medical problem is asthma. She does not smoke cigarettes. She does not consume alcohol. No illicit drug use. She is currently not on oral contraceptives or estrogen treatment. She is not on any medications that will make her hypercoagulable. She has not had any trauma to the lower extremities. She does not have any other family members with a history of DVT or pulmonary embolism. REVIEW OF SYSTEMS A comprehensive 14 point review of systems is completed which is negative except as described in the HPI. The patient does endorse dyspnea. This has actually improved since her hospital admission. PAST MEDICAL HISTORY 1. History of DVT of the left lower extremity. 2. Asthma. PAST SURGICAL HISTORY 1. IVC filter placement in 1997. 2. Breast augmentation surgery in 2010. 3. section 4. Tubal ligation MEDICATIONS AT HOME None. She is currently on a heparin GTT. FAMILY HISTORY Reviewed. Noncontributory to this admission. SOCIAL HISTORY She is an RN. She denies any tobacco abuse or illicit drug use. She rarely drinks alcohol. PHYSICAL EXAMINATION Vital signs: Blood pressure is 101/61, pulse is in the 70s, temperature is 99.1, O2 sats are 100% on room air. General: Well-developed, well-nourished female in no apparent distress. HEENT: Pupils are equal, round, reactive to light. EOMI. No oral thrush. No oral lesions. Neck: Supple. No JVD, no bruits. No lymphadenopathy. Chest: Clear to auscultation bilaterally. Cardiac: S1-S2 regular rate and rhythm. Abdomen: Soft, nontender, nondistended. Bowel sounds are present. Extremities: Right lower extremity edema which extends from pretibial area all the way up to the mid thigh. There is also left extremity swelling. Neuro: No focal deficits. Psych: Mood and affect is appropriate. IMAGING STUDIES Reviewed in the EMR. LABORATORY DATA WBC 5.6, hemoglobin 10.7, MCV 92.5, platelet count 139. Serum chemistries show sodium 140, potassium 4, CO2 24.9, BUN 7, creatinine 0.63, GFR is 129, calcium 7.2, total protein 5.4. Coags on admission, PT 11.2, INR 1, PTT 25. ASSESSMENT/PLAN This is a 35-year-old female with a past medical history of DVT in 1997. This DVT occurred in the setting of her and delivery. She now presents with an unprovoked DVT in the right lower extremity. 1. Unprovoked DVT of the right lower extremity. The patient has undergone AngioJet treatment. She is currently on heparin. She will need to be on anticoagulation indefinitely. This is her second DVT. It is unclear whether she had undergone any kind of hypercoagulable workup. I will order hypercoagulable workup while she is in the hospital. This will not change our management. She would like to avoid Coumadin as much as possible. She is agreeable to starting treatment with Xarelto. I discussed the risks and benefits from this treatment. I also discussed potential risks of bleeding. She is agreeable to this treatment. We will start her on Xarelto 15 milligrams one tablet p.o. daily for 21 days and then she will be transitioned to 20 milligrams of Xarelto on a daily basis. 2. Continue heparin GTT for at least 24 hours after the patient has been on Xarelto. Thank you for allowing me to participate in the care of this patient. I will continue to follow this patient along. MD LONNY Kraus/LIZETH /7:19 PM /8:31 PM MTDDilan
[2016-05-30] MEDS ORDERED: IOHEXOL 350 MG/ML 10 ML VIAL (for RAD DIAG) IV ONE (21:59)
--- NOTE | 2016-05-30 22:05 | RADRPT ---
EXAM DATE/TIME: 05/30/2016 21:36 [facility] COMPARISON: No previous studies available for comparison. INDICATIONS : Dyspnea and history of DVT. IV CONTRAST: 60 cc Omnipaque 350 (iohexol) IV RADIATION DOSE: 7.46 CTDIvol (mGy) MEDICAL HISTORY : Deep venous thrombosis. SURGICAL HISTORY : IVC Filter placement. ENCOUNTER: Subsequent ACUITY: 2 days PAIN SCALE: 2/10 LOCATION: chest TECHNIQUE: Volumetric scanning of the chest was performed using a pulmonary embolism protocol MIP images were re constructed. Using automated exposure control and adjustment of the mA and/or kV according to patien t size, radiation dose was kept as low as reasonably achievable to obtain optimal diagnostic quality images. FINDINGS: PULMONARY ARTERIES: No filling defects are seen in the pulmonary arteries through the segmental level. LUNGS: There is no consolidation or pneumothorax . No concerning pulmonary nodule is visualized. PLEURAE: There is no pleural thickening or pleural effusion. MEDIASTINUM: There is good visualization of the great vessels of the middle mediastinum. No evidence of mediastin al or hilar adenopathy/mass. MUSCULOSKELETAL: Within normal limits for patient age. MISCELLANEOUS: The visualized upper abdominal organs demonstrate no acute abnormality. CONCLUSION: No acute disease. Kristofer Vega MD on May 30, 2016 at 22:02 Board Certified Radiologist. This report was verified electronically.
[2016-05-30] MEDS: RIVAROXABAN 15 MG TAB PO SCH (22:16)
--- NOTE | 2016-05-30 22:17 | EKG ---
Date Performed: 05/29/2016 Time Performed: 12:17:24 PTAGE: 35 years EKG: Sinus rhythm Since previous tracing, no significant change noted NORMAL ECG PREVIOUS TRACING : 01/14/2011 07.53 DOCTOR: Jeanie Anders Interpretating Date/Time 05/30/2016 22:15:41
[2016-05-31] VITALS (9 sets, daily range): BP systolic 98–104; BP diastolic 57–70; PULSE 70–86; RESP 16–24; TEMP 98.4–99.6; O2SAT 98–100
[2016-05-31 02:43] LABS: APTT (PATIENT) 53.4 SEC (24.3-30.1)
[2016-05-31] MEDS: CHLORHEXIDINE GLUCONATE 2 % 1 PACK (2 CLOTHS)(taper/protocol) TOPICAL SCH (04:00)
[2016-05-31] MEDS: RIVAROXABAN 15 MG TAB PO SCH (08:48)
[2016-05-31] MEDS: SODIUM CHLORIDE 0.9% FLUSH 10 ML FLUSH IV FLUSH SCH (08:49)
[2016-05-31 09:18] LABS: APTT (PATIENT) 54.6 SEC (24.3-30.1)
[2016-05-31] MEDS: ACETAMINOPHEN/HYDROcodone 325 MG/5 MG TAB PO PRN (10:42)
--- NOTE | 2016-05-31 15:06 | PD.ONC.PN ---
Subjective Subjective Remarks Tmax overnight 99.5. Pt resting in bed watching TV in no distress. Per RN there has been no bleeding. Objective Data Date Time Temp Pulse Resp B/P Pulse Ox O2 Delivery O2 Flow Rate FiO2 05/31/16 12:00 86 05/31/16 12:00 98.9 86 20 98/57 98 05/31/16 10:00 84 05/31/16 08:00 98.4 78 24 103/66 99 05/31/16 08:00 78 05/31/16 07:00 100 Room Air 05/31/16 06:00 76 05/31/16 04:00 99.5 76 16 103/60 98 05/31/16 04:00 76 05/31/16 02:00 86 05/31/16 00:00 86 05/31/16 00:00 99.6 86 16 102/61 99 05/30/16 22:00 88 05/30/16 20:00 80 05/30/16 20:00 99.5 80 23 117/72 99 05/30/16 19:00 Room Air 05/30/16 18:00 84 05/30/16 16:00 99.1 74 16 101/61 100 05/30/16 16:00 74 05/31/16 05/31/16 05/31/16 07:00 15:00 23:00 Intake Total 372 ml Balance 372 ml Result Diagram: 05/30/16 1430 05/30/16 0350 Laboratory Results Laboratory Tests Test 05/30/16 05/31/16 05/31/16 19:20 02:30 08:50 Activated Partial 31.6 SEC 53.4 SEC 54.6 SEC Thromboplast Time Administered Medications Medications (Trade) Dose Ordered Sig/Guillaume Route PRN Reason Start Time Stop Time Status Last Admin Dose Admin Sodium Chloride (NS Flush) 2 ml BID IV FLUSH 05/29/16 21:00 05/30/16 22:16 Acetaminophen/ Hydrocodone Bitart ([place] 5-325 Mg) 1 tab Q6H PRN PO pain 1-10 05/29/16 12:15 05/31/16 10:42 Morphine Sulfate (Morphine Inj) 2 mg Q10M PRN IV PAIN SCALE 1 TO 4 05/29/16 18:15 05/30/16 04:16 Morphine Sulfate (Morphine Inj) 4 mg Q10M PRN IV PAIN SCALE 5 TO 10 05/29/16 18:15 05/30/16 22:14 Ondansetron HCl (Zofran Inj) 4 mg Q6H PRN IV NAUSEA 05/29/16 18:15 05/30/16 22:14 Miscellaneous Information Patient in critical care unit? Ass... [id number] XX 05/29/16 21:45 05/29/16 21:45 Chlorhexidine Gluconate (Chlorhexidine 2% Cloth) 3 pack DAILY@04 TOPICAL 05/30/16 04:00 06/03/16 04:01 05/30/16 02:34 Rivaroxaban (Xarelto) 15 mg BID PO 05/30/16 21:00 05/31/16 08:48 Objective Remarks GENERAL: Younger female, sitting up in bed in no distress. SKIN: Warm and dry. HEAD: Normocephalic. EYES: No scleral icterus. No injection or drainage. NECK: Supple, trachea midline. No JVD or lymphadenopathy. CARDIOVASCULAR: +S1/S2. RESPIRATORY: Breath sounds equal bilaterally. No accessory muscle use. GASTROINTESTINAL: Abdomen soft, non-tender, nondistended. EXTREMITIES: No cyanosis, RLE slightly more edematous. NEUROLOGICAL: No obvious focal deficit. Awake, alert, and oriented x3. Assessment/Plan Problem List: (1) DVT (deep venous thrombosis) Status: Acute Plan: -- RLE thrombus -- Hypercoagulable workup pending. -- Monitor CBC -- She will remain on anticoagulation indefinitely. -- Transition today from heparin to Xarelto. Hx/Workup: The pt has had a prior blood clot in 1996 when she was . She had a GOPOP.TV IVC filter placed at that time that is still present. Assessment 35 y/o female who presents to the ED with RLE pain and swelling. Plan 1. Transition from heparin to Xarelto 2. She will likely be anticoagulated indefinitely. 3. Hypercoagulable workup pending- this will take approx a week to have full results. 4. Pt to followup with Dr Hernandez as an outpatient once discharged. 5. Supportive care. Problem Qualifiers (1) DVT (deep venous thrombosis): Qualified Code: I82.401 - Acute deep vein thrombosis (DVT) of right lower extremity, unspecified vein Shelby Ariasne KELLY May 31, 2016 15:06
[2016-05-31] MEDS ORDERED: HYDR-3516 PO (16:37)
[2016-05-31] MEDS ORDERED: XARE15TA PO (16:37)
--- NOTE | 2016-05-31 16:41 | HHI.PR ---
Subjective Remarks No new complaints. Eager for discharge Objective Vitals Vital Signs Date Time Temp Pulse Resp B/P Pulse Ox O2 Delivery O2 Flow Rate FiO2 05/31/16 14:00 70 05/31/16 12:00 86 05/31/16 12:00 98.9 86 20 98/57 98 05/31/16 10:00 84 05/31/16 08:00 98.4 78 24 103/66 99 05/31/16 08:00 78 05/31/16 07:00 100 Room Air 05/31/16 06:00 76 05/31/16 04:00 99.5 76 16 103/60 98 05/31/16 04:00 76 05/31/16 02:00 86 05/31/16 00:00 86 05/31/16 00:00 99.6 86 16 102/61 99 05/30/16 22:00 88 05/30/16 20:00 80 05/30/16 20:00 99.5 80 23 117/72 99 05/30/16 19:00 Room Air 05/30/16 18:00 84 05/30/16 05/30/16 05/31/16 15:00 23:00 07:00 Intake Total 236 ml 965 ml 372 ml Balance 236 ml 965 ml 372 ml Intake Oral 100 ml 240 ml 120 ml IV Total 136 ml 725 ml 252 ml # Voids 3 3 2 # Bowel Movements 0 0 0 Result Diagram: 05/30/16 1430 05/30/16 0350 Imaging Last Impressions Lower Extremity Ultrasound 05/29/16 0000 Signed Impressions: Service Date/Time: Sunday, May 29, 2016 09:20 - CONCLUSION: Extensive edema thrombosis on the right as described above. Venous outflow was compromised through the external iliac vein. Kyree Stout MD FACR Objective Remarks GENERAL: This is a well-nourished, well-developed patient, in no apparent distress. CARDIOVASCULAR: Regular rate and rhythm without murmurs, gallops, or rubs. RESPIRATORY: Clear to auscultation. Breath sounds equal bilaterally. No wheezes , rales, or rhonchi. GASTROINTESTINAL: Abdomen soft, non-tender, nondistended. Normal active bowel sounds MUSCULOSKELETAL: Extremities without clubbing, cyanosis, or edema. NEURO: Alert & Oriented x4 to person, place, time, situation. Moves all ext x4 A/P Problem List: (1) DVT (deep venous thrombosis) Status: Acute Plan: - Pt admitted with RLE thigh and calf pain and swelling which began around 5 days ago. - Pt had recently flown on a plane to [place] about 2 weeks ago. No reported injury of trauma to the RLE. - She is not on any OCP or hormone supplements. - Pt does not take any medications chronically. - LE US (05/29) --> Extensive edema thrombosis on the right. Venous outflow was compromised through the external iliac vein. - Pt received tPA overnight with partial clearing of thrombus in SFV - anjojet thrombectomy with almost complete clearing of SFV and CFV - xarelto - appreciate input from Hematology - CTA chest (05/30/16) --> negative - f/u with PCP, Dr. Garcia, in 1 week - f/u with Hematology, Dr. Hernandez, in 2 weeks. - Pain control PRN Problem Qualifiers (1) DVT (deep venous thrombosis): Qualified Code: I82.401 - Acute deep vein thrombosis (DVT) of right lower extremity, unspecified vein Jonathan Yanez DO May 31, 2016 16:41
[2016-06-02 19:52] LABS: THROMBIN TIME FOR LA 31 sec (13-19)
[2016-06-03 19:54] LABS: PHOSPHATIDYLSERINE AB IGA LESS THAN 20.0 U/mL (()); PHOSPHATIDYLSERINE AB IGM GREATER THAN 100.0 U/mL (())
== END 2016-05-31 17:35 | disposition home or self-care (01) | DRG 272 ==
LOC: NEPB 07:56 → NEDA 12:11 → N03B 17:14
PROVIDERS: ADMIT Hospitalist; ATTEND Hospitalist
PROC: B51B1ZZ Fluoroscopy of Right Lower Extremity Veins using Low Osmolar Contrast (ICD-10-PCS; 2016-05-29)
PROC: 3E05317 Introduction of Other Thrombolytic into Peripheral Artery, Percutaneous Approach (ICD-10-PCS; 2016-05-29)
PROC: 04CC3ZZ Extirpation of Matter from Right Common Iliac Artery, Percutaneous Approach (ICD-10-PCS; principal; 2016-05-30)
PROC: 04CH3ZZ Extirpation of Matter from Right External Iliac Artery, Percutaneous Approach (ICD-10-PCS; 2016-05-30)
PROC: 04CK3ZZ Extirpation of Matter from Right Femoral Artery, Percutaneous Approach (ICD-10-PCS; 2016-05-30)
PROC: 04CM3ZZ Extirpation of Matter from Right Popliteal Artery, Percutaneous Approach (ICD-10-PCS; 2016-05-30)
PROC: 047C3ZZ Dilation of Right Common Iliac Artery, Percutaneous Approach (ICD-10-PCS; 2016-05-30)
PROC: 047K3ZZ Dilation of Right Femoral Artery, Percutaneous Approach (ICD-10-PCS; 2016-05-30)
PROC: 067Y3ZZ Dilation of Lower Vein, Percutaneous Approach (ICD-10-PCS; 2016-05-30)
PROC: 06703ZZ Dilation of Inferior Vena Cava, Percutaneous Approach (ICD-10-PCS; 2016-05-30)
DX: I82.411 Acute embolism and thrombosis of right femoral vein (principal); I82.421 Acute embolism and thrombosis of right iliac vein; Z86.718 Personal history of other venous thrombosis and embolism
CPT/HCPCS: 36005; 37187; 37212; 37213; 37248; 37249; 71010; 71275; 75820; 75825; 76937; 80048; 80053; 81240; 81241; 81291; 83090; 84155; 84702; 84703; 85025; 85027; 85240; 85384; 85597; 85598; 85610; 85613; 85670; 85730; 86146; 86147; 86148; 87641; 93005; 93971; 99152; 99153; C1725; C1757; C1769; C1887; C1894; J1644; J2250; J2270; J2405; J2997; J3010; J7030; J7040; Q9967